=== PATIENT | female | born 1955 | race Caucasian/White ===

== ENCOUNTER 2020-05-29 08:53 | Day surgery (SDC) | payer BC ==
[~2020-05-29 08:53] MED LIST: Lactated Ringers 1,000 ML IV SCH; Sodium Chloride 0.9% 10 ML SDV IV PRN; Sodium Chloride 0.9% 10 ML Syringe FLUSH PRN; Sodium Chloride 0.9% 2.5 ML Syringe FLUSH PRN
[2020-05-29] MEDS ORDERED: Albuterol/Ipratropium 3.0-0.5 MG/3 ML Neb Soln NEB ONE (09:32)
[2020-05-29] MEDS ORDERED: Propofol 200 MG/20 ML SDV ONE ×2 (09:35→10:34)
[2020-05-29] MEDS ORDERED: fentaNYL 100 MCG/2 ML SDV ONE (09:35)
[2020-05-29] MEDS ORDERED: Lidocaine 2% 5 ML SDV ONE (09:35)
[2020-05-29] MEDS ORDERED: Albuterol/Ipratropium 3.0-0.5 MG/3 ML Neb Soln ONE (09:37)
--- NOTE | 2020-05-29 09:38 | PCM.PREANE ---
Preanesthetic Assessment - Anesthesia/Transfusion/Family Hx Anesthesia History: Prior Anesthesia Without Reaction Family History of Anesthesia Reaction: No Transfusion History: No Prior Transfusion(s) - Review of Systems General: No Symptoms Pulmonary: No Symptoms Cardiovascular: No Symptoms Gastrointestinal: No Symptoms Neurological: No Symptoms Other: Reports: None - Physical Assessment NPO Status Date: 05/28/20 Height: 5 ft 5 in Weight: 65.771 kg Mental Status: Alert & Oriented x3 Airway Class: Mallampati = 2 Dentition: Reports: Dentures, Edentulous ROM/Head Extension: Full Lungs: Normal Respiratory Effort, Rhonchi, Wheezing - Allergies Allergies/Adverse Reactions: Allergies Allergy/AdvReac Type Severity Reaction Status Date / Time No Known Allergies Allergy Verified 05/26/20 09:48 - Acknowledgements Anesthesia Type Planned: General Anesthesia (tiva) Pt an Appropriate Candidate for the Planned Anesthesia: Yes Alternatives and Risks of Anesthesia Discussed w Pt/Guardian: Yes Pt/Guardian Understands and Agrees with Anesthesia Plan: Yes Additional Comments: PMH: copd "moderate", no recent exac from cold temp, dust or infection, SPO2 97% in office, 90% on arrival today, 94% after warming hands, lungs with scattered wheezes and rhonchi, not "tight". 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 PreAnesthesia Questionnaire HEENT History: Reports: Cataract, Hard of Hearing, Other (See Below) Other HEENT History: wears glasses, has upper and lower dentures Cardiovascular History: Reports: Blood Clots/VTE/DVT, High Cholesterol, Hypertension Other Cardiovascular History: hx of Carotid Stenosis, hx of DVT in portal vein Respiratory History: Reports: Croup Other Respiratory History: does not have a rescue inhaler Gastrointestinal History: Reports: Colon Polyp Genitourinary History: Reports: None PLANT PACKER History: Reports: Musculoskeletal History: Reports: Back Pain, Chronic Neurological History: Reports: None Psychiatric History: Reports: None Endocrine/Metabolic History: Reports: None Hematologic History: Reports: None Immunologic History: Reports: None Oncologic (Cancer) History: Reports: Cervix Dermatologic History: Reports: None Other Dermatologic History: acne - Infectious Disease History Infectious Disease History: Reports: Chicken Pox, Measles, Mumps - Past Surgical History Head Surgeries/Procedures: Reports: None GI Surgical History: Reports: Colon, Colonoscopy Other GI Surgeries/Procedures: hx of right Hemicolectomy Female Surgical History: Reports: Breast Biopsy - SUBSTANCE USE Smoking Status *Q: Current Every Day Smoker Tobacco Use Within Last Twelve Months: Cigarettes Recreational Drug Use History: No - HOME MEDS Home Medications: Home Meds Aspirin [Adult Low Dose Aspirin EC] 81 mg PO DAILY 05/26/20 [History] Calcium Carb, Citrate/Vit D3 [Citracal + D ER] 2 tab PO DAILY 05/26/20 [History] Cholecalciferol (Vitamin D3) [Vitamin D3] 2,000 unit PO BID 05/26/20 [History] Diclofenac Sodium 4 gm TOP BID PRN 05/26/20 [History] Fluticasone/Salmeterol [Advair 250-50] 1 puff INH BID 05/26/20 [History] Rosuvastatin Calcium 20 mg PO DAILY 05/26/20 [History] amLODIPine Besylate [Amlodipine Besylate] 10 mg PO QAM 05/26/20 [History] traMADol [Ultram] 50 mg PO BID PRN 05/26/20 [History] - CURRENT (IN HOUSE) MEDS Current Meds: Current Medications Lactated Ringer's (Ringers, Lactated) 1,000 mls @ 125 mls/hr IV ASDIRECTED JEANNETTE Sodium Chloride (Saline Flush) 10 ml FLUSH ASDIRECTED PRN PRN Reason: Keep Vein Open Sodium Chloride (Saline Flush) 2.5 ml FLUSH ASDIRECTED PRN PRN Reason: Keep Vein Open Sodium Chloride (Saline Flush) 10 ml FLUSH ASDIRECTED PRN PRN Reason: Keep Vein Open Sodium Chloride (Saline Flush) 2.5 ml FLUSH ASDIRECTED PRN PRN Reason: Keep Vein Open Sodium Chloride (Normal Saline) 10 ml IV ASDIRECTED PRN PRN Reason: IV Use
[2020-05-29] MEDS ORDERED: Midazolam 1 MG/ML 2 ML SDV ONE (10:24)
--- NOTE | 2020-05-29 10:41 | PCM.POSTAN ---
POST ANESTHESIA ASSESSMENT - MENTAL STATUS Mental Status: Alert, Oriented - RESPIRATORY Respiratory Status: Respiratory Rate WNL, Airway Patent, O2 Saturation Stable - CARDIOVASCULAR CV Status: Pulse Rate WNL, Blood Pressure Stable - GASTROINTESTINAL GI Status: No Symptoms - POST OP HYDRATION Hydration Status: Adequate & Stable
--- NOTE | 2020-05-29 10:41 | PCM48HPAN ---
Post Anesthesia Note - EVALUATION WITHIN 48HRS OF ANESTHETIC Vital Signs in Normal Range: Yes Patient Participated in Evaluation: Yes Respiratory Function Stable: Yes Airway Patent: Yes Cardiovascular Function Stable: Yes Hydration Status Stable: Yes Pain Control Satisfactory: Yes Nausea and Vomiting Control Satisfactory: Yes Mental Status Recovered: Yes
--- NOTE | 2020-05-29 10:49 | PCM.OPNOTE ---
- General Post-Op/Procedure Note Date of Surgery/Procedure: 05/29/20 Operative Procedure(s): Diagnostic colonoscopy Findings: Diverticulosis, hyperplastic polyps in sigmoid colon, descending colon polyp x1, transverse colon polyp x1 and hepatic flexure polyps x2. Pre Op Diagnosis: History of colonic polyps. Post-Op Diagnosis: Diverticulosis, hyperplastic polyps in sigmoid colon, descending colon polyp x1, transverse colon polyp x1 and hepatic flexure polyps x2. Anest[place] [facility] [place] Surgeon: Sharmila Henry Complications: None. Condition: Stable
[2020-05-29 11:54] VITALS: BP 88/52; PULSE 82
--- NOTE | 2020-05-29 12:16 | OR ---
SURGEON: SHARMILA HENRY MD DATE OF PROCEDURE: 05/29/2020 PREOPERATIVE DIAGNOSIS: History of colon polyps. POSTOPERATIVE DIAGNOSES: 1. Diverticulosis. 2. Hyperplastic sigmoid colon polyps. 3. Hepatic flexure polyps x2. 4. Transverse colon polyp x1. 5. Descending colon polyp x1. PROCEDURE PERFORMED: Diagnostic colonoscopy. PRIMARY SURGEON: Sharmlia Henry MD ANESTHESIA: MAC. INSTRUMENT USED: Olympus colonoscope. EXTENT OF EXAM: To the anastomosis. PREPARATION: Good. LIMITATIONS: None. INDICATIONS FOR EXAMINATION: The patient is a 64-year-old female who presents for a 1-year followup colonoscopy. Last year, she underwent a right hemicolectomy for an ascending colon polyp that was unable to be removed endoscopically. The patient and I discussed the need for diagnostic colonoscopy. I explained the procedure; expected perioperative course; and the risks including bleeding, infection, or damage to surrounding structures. She verbalized understanding and wishes to proceed. PROCEDURE IN DETAIL: The patient was brought into the endoscopy suite and placed in the left lateral decubitus position. A time-out was completed verifying the patient's name, age, date of , allergies, and procedure to be performed. Monitored anesthesia care was induced and continuous oxygen was provided via nasal cannula throughout the procedure. After adequate sedation was achieved, a digital rectal exam was performed. This exam was within normal limits. A well-lubricated colonoscope was inserted in the rectum and advanced under direct visualization to the level of the anastomosis. This appeared normal and there was no evidence of recurrence. A photograph was taken. The scope was then fully withdrawn while examining the color, texture, anatomy, and integrity of the mucosa from the anastomosis to the anal canal. The patient had two polyps that were sessile and flat in the area of the hepatic flexure. Both of these were removed in piecemeal fashion using cold biopsy forceps. Just distal to this was a previous inked marking, and I could see a scar from a previous polypectomy. There was no evidence of recurrence at this site. In the distal transverse colon and in the descending colon, the patient had sessile polyps as well. These were removed in piecemeal fashion using cold biopsy forceps. The patient had diverticulosis throughout the sigmoid colon as well as multiple hyperplastic appearing sigmoid colon polyps. The scope was brought into the rectum and retroflexed to allow visualization of the anal canal opening. This appeared normal and a photograph was taken. The scope was then straightened out and fully withdrawn. The anastomosis to anus time was 40 minutes. The patient tolerated the procedure well and was transferred to the PACU in stable condition. ENDOSCOPIC DIAGNOSES: 1. Diverticulosis. 2. Hyperplastic sigmoid colon polyps. 3. Hepatic flexure polyps x2. 4. Transverse colon polyp x1. 5. Descending colon polyp x1. RECOMMENDATIONS: Follow up in clinic in 2 weeks. NISHANT MOLINA /[id number]
== END 2020-05-29 11:50 | disposition home or self-care (01) ==
LOC: MW.SDS 08:53
PROVIDERS: ATTEND Surgery
DX: D12.3 Benign neoplasm of transverse colon (principal); D12.4 Benign neoplasm of descending colon; K57.30 Diverticulosis of large intestine without perforation or abscess without bleeding; E78.00 Pure hypercholesterolemia, unspecified; I10 Essential (primary) hypertension; F17.210 Nicotine dependence, cigarettes, uncomplicated; J44.9 Chronic obstructive pulmonary disease, unspecified; E78.5 Hyperlipidemia, unspecified; Z79.899 Other long term (current) drug therapy; Z86.018 Personal history of other benign neoplasm; Z98.890 Other specified postprocedural states
CPT/HCPCS: 45380; 94640; J2001; J2250; J2704; J3010; J7120; 00811; 88305; J7620-GY

== ENCOUNTER 2020-06-10 11:02 | Day surgery (SDC) | payer BC ==
[2020-06-10] MEDS ORDERED: Betamethasone Acetate/Betamethasone Sod Phosphate 30 MG/5 ML MDV EPIDUR ONE (12:00)
[2020-06-10] MEDS ORDERED: Lidocaine 2% 5 ML SDV INJECT ONE (12:00)
[2020-06-10] MEDS ORDERED: Iopamidol 200-M 10 ML vial ITHECAL ONE (12:00)
[2020-06-10] MEDS ORDERED: Ropivacaine 0.5% 5 MG/ML 30 ML SDV INJECT ONE (12:00)
--- NOTE | 2020-06-11 16:54 | OR ---
SURGEON: Jessie Bond D.O. DATE OF PROCEDURE: 06/10/2020 PRIMARY SURGEON: Jessie Bond DO ASSISTANTS: OR staff present: 1. Power Mohan RN. 2. Lynn Hoffmann RN. 3. Power Fay RT. WOUND CLASS: I. PREOPERATIVE DIAGNOSES: 1. Lumbar spondylosis. 2. Lumbosacral facet joint syndrome. 3. Lumbar degenerative disk disease, L4-5 and L5-S1. POSTOPERATIVE DIAGNOSES: 1. Lumbar spondylosis. 2. Lumbosacral facet joint syndrome. 3. Lumbar degenerative disk disease, L4-5 and L5-S1. PROCEDURES PERFORMED: 1. Right L4-5 facet joint injection. 2. Right L5-S1 facet joint injection. 3. Left L4-5 facet joint injection. 4. Left L5-S1 facet joint injection. 5. Fluoroscopic guidance for needle placement. 6. Local with oral Valium for sedation. SCREENING QUESTIONS: The patient answered "No" to all the following questions: 1. Are you allergic to iodine, Betadine or latex? 2. Do you have a bleeding disorder? 3. Are you on anti-inflammatories or blood thinners? 4. Do you have any current local or systemic infections? DESCRIPTION OF PROCEDURE: The patient had the procedure thoroughly explained including risks, benefits and alternatives. Consent was signed in my clinic indicating understanding and willingness to proceed. The patient presented to [facility] and was escorted to the dressing room to disrobe and change into a hospital gown. Preoperative history and screening were performed by my nurse. Vital signs were taken and stable. The patient reported that Valium 10 milligrams was taken prior to the procedure. The patient was brought back to the procedure room and placed in the prone position on the procedure room table. A pillow was placed under the abdomen in order to flatten the lumbar lordosis. The back was prepped with ChloraPrep and sterilely draped. All personnel in the procedure room were dressed in appropriate attire including surgical scrubs, head and shoe covers. This was to ensure sterility while in the treatment room. During the time fluoroscopy was in use all personnel in the operating room wore lead gerard with thyroid collars. Sterile technique was used during the procedure. Then the fluoroscope was positioned to provide a right oblique view for the right L4-L5 facet joint injection. This was begun by anesthetizing the skin and soft tissues. The fluoroscope was positioned and a sterile 22-gauge 3.5 inch needle was placed at the junction of the "ear of the sravan dog". Precise needle placement was confirmed by fluoroscopy. Then 0.2 cubic centimeters of IsoVue-200 contrast dye was injected through microbore tubing under live fluoroscopy and showed no intravascular flow pattern and adequate flow over the target medial branch. After negative aspiration, 1.0 cubic centimeters of Celestone and 0.5% Ropivacaine was injected without complications. The procedure was repeated as above for the left L4-5 facet joint injection. The fluoroscope was then positioned to provide a right oblique view for the L5- S1 facet joint injection. This was begun by anesthetizing the skin and soft tissues. Then using fluoroscopic guidance, a sterile 22-gauge 3.5 inch spinal needle was positioned at the right "ear of the Sravan dog" for the right L5-S1 facet joint. Precise needle placement was confirmed by fluoroscopy in AP and oblique views, and 0.2 cubic centimeters of IsoVue-200 contrast dye was injected through microbore tubing under live fluoroscopy and showed no intravascular flow pattern and adequate flow over the target nerves. After negative aspiration, 1.0 cubic centimeters of Celestone and Ropivacaine was injected. No complications were noted. The procedure was then repeated as above for the left L5-S1 facet joint injection The procedure was well tolerated and vital signs were stable during and after the procedure. The staff escorted the patient to the recovery area. The patient was given both oral and written discharge and followup instructions. The patient will follow up with a pain diary which will be evaluated over this evening doing things that would normally cause pain. We will evaluate the efficacy of the diagnostic lumbar medial branch blocks as the patient will follow up in the clinic the next day. The patient was given both oral and written discharge and followup instructions. The patient voiced understanding including understanding of those signs and symptoms that would require emergency care and knows how to contact the office if there are any questions or concerns in the meantime. PREOPERATIVE PAIN: 01/05. POSTOPERATIVE PAIN: 09/07. FOLLOWUP: In the Pain Clinic in 3 weeks. HOGLCHR / MODL /[id number] NIK
== END 2020-06-10 13:05 ==
LOC: MW.SDS 11:02
PROVIDERS: ATTEND Anesthesiology
DX: G89.29 Other chronic pain (principal); M47.816 Spondylosis without myelopathy or radiculopathy, lumbar region; M51.36 Other intervertebral disc degeneration, lumbar region; M51.37 Other intervertebral disc degeneration, lumbosacral region; J44.9 Chronic obstructive pulmonary disease, unspecified; M47.817 Spondylosis without myelopathy or radiculopathy, lumbosacral region; M79.18 Myalgia, other site; M53.3 Sacrococcygeal disorders, not elsewhere classified; I10 Essential (primary) hypertension; E78.5 Hyperlipidemia, unspecified; F17.210 Nicotine dependence, cigarettes, uncomplicated; Z79.82 Long term (current) use of aspirin; Z79.899 Other long term (current) drug therapy
CPT/HCPCS: 64493; 64494; J0702; J2001; J2795; Q9966

== ENCOUNTER 2024-10-05 16:27 | Emergency (ER) | payer MEDICARE, BC ==
[2024-10-05] MEDS: Sodium Bicarbonate 8.4% 50 MEQ/50 ML Syringe IVPUSH ONE ×3 (16:27→18:24)
[2024-10-05] MEDS: Lidocaine 2% 100 MG/5 ML Syringe IVPUSH ONE (16:29)
[2024-10-05] MEDS: EPINEPHrine 1:10,000 1 MG/10 ML Syringe IVPUSH ONE ×11 (16:32→21:43)
[2024-10-05 16:39] LABS: HEMATOCRIT 43.8 % (37.0-47.0); HEMOGLOBIN 14.7 g/dL (12.0-16.0); MEAN CORPUSCULAR HEMOGLOBIN 34.2 pg (28.0-32.0); MEAN CORPUSCULAR HGB CONC 33.6 g/dL (32.0-36.0); MEAN CORPUSCULAR VOLUME 101.9 fL (83.0-99.0); NRBC ABSOLUTE 0.05 K/uL (0.00-0.02); NRBC PERCENT 0.3 /100WBC (0.0-0.2); PLATELET COUNT,PLT 173 K/uL (150-400); WHITE BLOOD CELL COUNT,WBC 15.23 K/uL (3.9-11.3)
[2024-10-05 17:08] LABS: PH,VENOUS 7.05 (7.31-7.41)
[2024-10-05 17:24] LABS: SEG NEUTROPHILS ABSOLUTE MAN 7.62 K/uL (1.80-7.70); SEG NEUTROPHILS PERCENT MAN 50 % (41-71)
[2024-10-05 17:25] LABS: BAND ABSOLUTE MAN 0.76; BAND PERCENT MAN 5 %; LYMPHOCYTES ABSOLUTE MAN 5.64 K/uL (1.00-4.80); LYMPHOCYTES PERCENT MAN 37 % (24-44); MONOCYTES ABSOLUTE MAN 1.22 K/uL (0.00-0.80); MONOCYTES PERCENT MAN 8 % (0-8)
[2024-10-05] MEDS: SODIUM CHLORIDE 0.9% IV SCH (17:29)
[2024-10-05] MEDS: KETAMINE IV SCH (17:29)
[2024-10-05 17:38] LABS: INR 1.49 (0.86-1.11)
[2024-10-05] MEDS: DOBUTamine/Dextrose 5%-Water 500 MG/250 ML BAG IV SCH (17:38)
[2024-10-05] MEDS: Sodium Chloride 0.9% 500 ML IV SCH (17:40)
[2024-10-05 17:48] LABS: A/G RATIO 0.8 (0.9-1.6); ALANINE AMINOTRANSFERASE,ALT 88 IU/L (14-63); ALBUMIN 1.7 g/dL (3.4-5.0); ALKALINE PHOSPHATASE 75 U/L (46-116); ASPARTATE AMNIOTRANSFERASE,AST 107 IU/L (15-37); BILIRUBIN TOTAL 0.6 mg/dL (0.2-1.0); BLOOD UREA NITROGEN,BUN 9 mg/dL (7.0-18.0); CALCIUM 10.1 mg/dL (8.5-10.1); CARBON DIOXIDE,CO2 21.9 mmol/L (21.0-32.0); CHLORIDE,CL 99 mmol/L (98-107); CREATININE 1.1 mg/dL (0.6-1.0); ESTIMATED GFR 54 mL/min (>60); GLUCOSE RANDOM 178 mg/dL (74-106); LIPASE 20 U/L (16-77); PROTEIN TOTAL,TP 3.9 g/dL (6.4-8.2); SODIUM,NA 138 mmol/L (136-145)
[2024-10-05] MEDS: Calcium Chloride 10% 1 GM/10 ML Syringe IVPUSH ONE (18:24)
[2024-10-05 18:53] LABS: HEMATOCRIT 47.1 % (37.0-47.0); MEAN CORPUSCULAR HEMOGLOBIN 33.8 pg (28.0-32.0); MEAN CORPUSCULAR VOLUME 99.4 fL (83.0-99.0); MEAN PLATELET VOLUME 9.1 fL (9.4-12.3); NRBC ABSOLUTE 0.03 K/uL (0.00-0.02); NRBC PERCENT 0.2 /100WBC (0.0-0.2); PLATELET COUNT,PLT 170 K/uL (150-400); RED BLOOD CELL COUNT 4.74 M/uL (4.10-5.30)
[2024-10-05 19:06] LABS: BICARBONATE,ARTERIAL 25 mEq/L (22-26); PCO2 ARTERIAL 50 mmHG (35-45); PO2 ARTERIAL 289 mmHG (80-105)
[2024-10-05 19:08] LABS: INR 2.15 (0.86-1.11)
[2024-10-05] MEDS: VASOPRESSIN IV SCH (19:21)
[2024-10-05] MEDS: Piperacillin/Tazobactam 4.5 GM in Sodium Chloride 0.9% 100 ML IV ONE (19:21)
[2024-10-05] MEDS: NORMAL SALINE IV SCH (19:21)
[2024-10-05 19:27] LABS: SEG NEUTROPHILS ABSOLUTE MAN 8.68 K/uL (1.80-7.70); SEG NEUTROPHILS PERCENT MAN 62 % (41-71)
[2024-10-05 19:28] LABS: BAND ABSOLUTE MAN 1.12; BAND PERCENT MAN 8 %; LYMPHOCYTES ABSOLUTE MAN 3.78 K/uL (1.00-4.80); LYMPHOCYTES PERCENT MAN 27 % (24-44); MONOCYTES ABSOLUTE MAN 0.42 K/uL (0.00-0.80); MONOCYTES PERCENT MAN 3 % (0-8)
[2024-10-05] MEDS ORDERED: Heparin Sodium/0.45% NaCl 25,000 UNITS/250 ML BAG IV SCH (19:30)
[2024-10-05] MEDS ORDERED: Vasopressin 20 UNITS in Sodium Chloride 0.9% 50 ML IV SCH (19:30)
[2024-10-05 19:39] LABS: A/G RATIO 0.8 (0.9-1.6); ALANINE AMINOTRANSFERASE,ALT 291 IU/L (14-63); ALKALINE PHOSPHATASE 201 U/L (46-116); ASPARTATE AMNIOTRANSFERASE,AST 395 IU/L (15-37); BILIRUBIN TOTAL 1.1 mg/dL (0.2-1.0); BLOOD UREA NITROGEN,BUN 11 mg/dL (7.0-18.0); CALCIUM 11.6 mg/dL (8.5-10.1); CARBON DIOXIDE,CO2 28.8 mmol/L (21.0-32.0); CHLORIDE,CL 102 mmol/L (98-107); CREATININE 1.4 mg/dL (0.6-1.0); GLUCOSE RANDOM 194 mg/dL (74-106); LIPASE 36 U/L (16-77); POTASSIUM,K 3.8 mmol/L (3.5-5.1); PRO B-TYPE NATRIUR PEPT,BNPPRO 5076 pg/mL (0-125); PROTEIN TOTAL,TP 4.4 g/dL (6.4-8.2); SODIUM,NA 142 mmol/L (136-145)
[2024-10-05 19:41] LABS: ESTIMATED GFR 41 mL/min (>60)
[2024-10-05] MEDS: HYDROmorphone 1 MG/ML Syringe IVPUSH ONE ×2 (20:30→22:02)
[2024-10-05] MEDS: LORazepam 2 MG/ML SDV IVPUSH ONE ×2 (20:31→21:59)
[2024-10-05] MEDS: Ondansetron 4 MG/2 ML SDV IVPUSH ONE (20:38)
[2024-10-05] MEDS: Sodium Chloride 0.9% 1,000 ML IV ONE (20:38)
[2024-10-05] MEDS: Sodium Bicarbonate 150 MEQ in Dextrose 5% in Water 1,000 ML IV ONE (20:38)
[2024-10-05] MEDS: Heparin Sodium 5,000 Units/ML Vial IVPUSH ONE (20:39)
[2024-10-05] MEDS: Glycopyrrolate 0.2 MG/ML SDV IVPUSH ONE (20:42)
[2024-10-05] MEDS: Benzocaine 20% Topical Spray UD MUCMEM ONE (23:10)
== END 2024-10-05 21:35 | disposition expired ==
LOC: MW.ED 16:27
DX: I46.9 Cardiac arrest, cause unspecified (principal); I21.4 Non-ST elevation (NSTEMI) myocardial infarction; K72.00 Acute and subacute hepatic failure without coma; R57.0 Cardiogenic shock; I50.9 Heart failure, unspecified; Z79.82 Long term (current) use of aspirin; Z79.899 Other long term (current) drug therapy
CPT/HCPCS: 31500; 36415; 36556; 36600; 51702; 71045; 80053; 82803; 82947; 83605; 83690; 83735; 83880; 84484; 85025; 85610; 85730; 92950; 93005; 96365; 96366; 96368; 96375; 96376; 99291; 99292; J0171; J1171; J1250; J2060; J2543; J2598; J3490; J7040; J7050; 93010